=== PATIENT | male | born 1955 | race Caucasian/White ===

== ENCOUNTER 2024-02-11 12:36 | Observation (INO) | payer MEDICARE ==
[2024-02-11] VITALS (22 sets, daily range): BP systolic 66–190; BP diastolic 34–128
[~2024-02-11] VITALS: Ht 190.5 cm; Wt 95.0 kg
[~2024-02-11 12:36] MED LIST: ALPRAZOLAM ER0.5 MG PO; LIPITOR80 M1 PO; METFORMIN HCL1000 MG PO
[2024-02-11] MEDS ORDERED: ONDANSETRON HCl 4 MG/2 ML SDV IV ONE (13:15)
[2024-02-11] MEDS ORDERED: SODIUM CHLORIDE 0.9% 1,000 ML IV ONE ×3 (13:15→15:25)
[2024-02-11 13:32] LABS: BASO% 0.4 % (0-3); EOS% 0.6 % (0-8); HEMOGLOBIN 14.3 g/dl (14.0-18.0); IMMATURE GRANULOCYTES 0.2 % (0.0-5.0); LYMPH% 19.5 % (15-41); MEAN CELL VOLUME 84.6 fL CALC (80.0-100.0); MEAN CORPUSCULAR HGB 28.1 pG CALC (26.0-32.0); MEAN CORPUSCULAR HGB CONC 33.3 g/dL CAL (32.0-36.0); MONO% 15.5 % (2-13); NEUT# 3.47 thou/uL (1.82-7.42); NEUT% 63.8 % (42-76); RED BLOOD COUNT 5.08 mill/uL (4.70-6.10); RED CELL DISTRI WIDTH 13.5 % (11.5-15.5)
[2024-02-11 13:48] LABS: ALBUMIN 3.9 g/dL (3.2-5.0); ALKALINE PHOSPHATASE 109 u/l (38-126); BUN 21 mg/dL (8-23); BUN/CREATININE RATIO 18 (12-20 (CALC)); CHLORIDE 106 mmol/l (95-108); CREATININE 1.2 mg/dL (0.7-1.3); ESTIMATED GFR 65 ML/MIN (>=90 (CALC)); SGOT/AST 27 u/l (19-48); SODIUM 137 mmol/l (137-146); TOTAL PROTEIN 7.1 g/dL (6.3-8.2)
[2024-02-11 13:49] LABS: ANION GAP 15 (6-22 (CALC)); CARBON DIOXIDE 20 mmol/l (22-30); POTASSIUM 3.5 mmol/l (3.5-5.1)
[2024-02-11 13:53] LABS: INTERNATIONAL NORMALIZED RATIO 1.1 RATIO (0.7-1.3)
[2024-02-11 13:54] LABS: PROTHROMBIN TIME 10.3 SECONDS (9.0-12.5)
[2024-02-11] MEDS ORDERED: PROMETHAZINE HCL 25 MG/ML AMP IV ONE (15:25)
[2024-02-11] MEDS ORDERED: PIPERACILLIN Sodium-Tazobactam 3.375 GM in SODIUM CHLORIDE 0.9% 100 ML IV ONE (15:25)
[2024-02-11 15:49] LABS: URINE BILIRUBIN - DIPSTICK Negative (NEGATIVE); URINE BLOOD DIPSTICK Negative (NEGATIVE); URINE GLUCOSE - DIPSTICK Negative (NEGATIVE); URINE KETONE Negative (NEGATIVE); URINE LEUK ESTERASE Negative (NEGATIVE); URINE NITRITE - DIPSTICK Negative (Negative); URINE PROTEIN - DIPSTICK Negative (NEG-TRACE); URINE UROBILINOGEN - DIPSTICK 0.2 E.U./dL (0.2)
[2024-02-11 15:50] LABS: URINE COLOR Yellow
[2024-02-11] MEDS ORDERED: TRAZODONE50 MG PO (15:56)
[2024-02-11] MEDS ORDERED: FLEXERIL5 M1 PO (15:57)
[2024-02-11] MEDS ORDERED: ATORVASTATIN CA40 MG PO (15:59)
[2024-02-11] MEDS ORDERED: PROTONIX40 M2 PO (16:00)
[2024-02-11] MEDS ORDERED: VENLAFAXINE H37.5 M2 PO (16:00)
[2024-02-11] MEDS ORDERED: TOPROL XL25 M1 PO (16:01)
[2024-02-11] MEDS ORDERED: ASPIRINCHW 81MG PO (16:01)
[2024-02-11] MEDS ORDERED: LORTAB 1010 MG PO (16:02)
[2024-02-11] MEDS ORDERED: MAGNESIUM HYDROXIDE 30 ML UDC PO PRN (16:20)
[2024-02-11] MEDS ORDERED: SODIUM CHLORIDE 0.9% 1,000 ML IV PRN (16:20)
[2024-02-11] MEDS ORDERED: ACETAMINOPHEN 325 MG/TAB PO PRN (16:20)
[2024-02-11] MEDS ORDERED: HYDROcodone/Acetaminophen 1 COMBO TAB PO PRN (16:20)
[2024-02-11] MEDS ORDERED: XANAX0.5 MG PO (16:22)
[2024-02-11] MEDS ORDERED: METOPROLOL SUCCINATE 25 MG/TAB-TOPROL XL PO SCH (21:00)
[2024-02-11] MEDS ORDERED: ASPIRIN 81 MG/TAB PO SCH (21:00)
[2024-02-11] MEDS ORDERED: ALPRAZolam 0.5 MG/TAB PO PRN (21:00)
[2024-02-11] MEDS ORDERED: traZODone HCL 50 MG/TAB PO SCH (21:00)
[2024-02-11] MEDS ORDERED: VENLAFAXINE HYDROCHLORIDE 37.5 MG/TAB PO SCH (21:00)
[2024-02-11] MEDS ORDERED: ENOXAPARIN SODIUM 40 MG/0.4 ML SYR SC SCH (21:00)
[2024-02-11] MEDS ORDERED: ONDANSETRON HCl 4 MG/2 ML SDV IV PRN (23:45)
[2024-02-12] VITALS (7 sets, daily range): BP systolic 118–159; BP diastolic 44–74
[2024-02-12] MEDS ORDERED: PIPERACILLIN Sodium-Tazobactam 3.375 GM in SODIUM CHLORIDE 0.9% 100 ML IV SCH
[2024-02-12 05:14] LABS: HEMATOCRIT 38.2 % (39.0-50.0); MEAN CELL VOLUME 88.6 fL CALC (80.0-100.0); MEAN CORPUSCULAR HGB 28.3 pG CALC (26.0-32.0); MEAN CORPUSCULAR HGB CONC 31.9 g/dL CAL (32.0-36.0); RED BLOOD COUNT 4.31 mill/uL (4.70-6.10); RED CELL DISTRI WIDTH 13.5 % (11.5-15.5)
[2024-02-12 05:55] LABS: HEMOGLOBIN 12.2 g/dl (14.0-18.0)
[2024-02-12 06:00] LABS: BILIRUBIN, TOTAL 1.3 mg/dL (0.2-1.3); MAGNESIUM 1.9 mg/dL (1.6-2.3); POTASSIUM 3.1 mmol/l (3.5-5.1)
[2024-02-12 06:18] LABS: ALBUMIN 2.7 g/dL (3.2-5.0); TOTAL PROTEIN 5.3 g/dL (6.3-8.2)
[2024-02-12] MEDS ORDERED: PROMETHAZINE HCL 25 MG/ML AMP IV PRN (10:00)
[2024-02-12] MEDS ORDERED: POTASSIUM CHLORIDE 20MEQ 100 ML IV SCH (12:00)
[2024-02-12] MEDS ORDERED: hydrALAZINE HCL 20 MG/ML VIAL(1 ML) IV PRN (12:00)
[2024-02-13 03:59] VITALS: BP 152/65
[2024-02-13 05:12] LABS: HEMATOCRIT 32.4 % (39.0-50.0); HEMOGLOBIN 10.9 g/dl (14.0-18.0); MEAN CORPUSCULAR HGB 28.6 pG CALC (26.0-32.0); MEAN CORPUSCULAR HGB CONC 33.6 g/dL CAL (32.0-36.0); RED BLOOD COUNT 3.81 mill/uL (4.70-6.10); RED CELL DISTRI WIDTH 13.4 % (11.5-15.5)
[2024-02-13 05:25] LABS: ALBUMIN 2.5 g/dL (3.2-5.0); CREATININE 0.9 mg/dL (0.7-1.3); POTASSIUM 3.1 mmol/l (3.5-5.1)
[2024-02-13 07:21] VITALS: BP 156/69
[2024-02-13] MEDS ORDERED: PANTOPRAZOLE SODIUM Sesquihydr 40 MG/TAB PO SCH (09:00)
[2024-02-13] MEDS ORDERED: CIPROFLOXACN500 MG PO (09:55)
[2024-02-13] MEDS ORDERED: METRONIDAZOLE500 MG PO (09:55)
[2024-02-13] MEDS ORDERED: POTASSIUM CHLORIDE 20MEQ 100 ML IV SCH (12:00)
[2024-02-17] MEDS ORDERED: METFORMIN500 M2 PO (15:16)
== END 2024-02-13 12:37 | disposition home or self-care (01) ==
LOC: ED 12:36 → ED-I 13:17 → ED 15:43 → MS2 15:44
PROVIDERS: Nurse Practitioner; Nurse Practitioner Family; ADMIT Internal Medicine; ATTEND Internal Medicine
DX: K50.10 Crohn's disease of large intestine without complications (principal); E86.0 Dehydration; K29.70 Gastritis, unspecified, without bleeding; I10 Essential (primary) hypertension; E11.9 Type 2 diabetes mellitus without complications; I25.10 Atherosclerotic heart disease of native coronary artery without angina pectoris; F41.9 Anxiety disorder, unspecified; Z87.891 Personal history of nicotine dependence; Z87.11 Personal history of peptic ulcer disease; Z87.19 Personal history of other diseases of the digestive system
CPT/HCPCS: G0378; J1650; J2470; Q9967

== ENCOUNTER 2024-04-03 07:28 | Day surgery (SDC) | payer MEDICARE ==
[~2024-04-03] VITALS: Ht 190.5 cm; Wt 95.3 kg
[~2024-04-03 07:28] MED LIST changes: +ASPIRINCHW 81MG PO; +ATORVASTATIN CA40 MG PO; +CIPROFLOXACN500 MG PO; +FLEXERIL5 M1 PO; +LORTAB 1010 MG PO; +METFORMIN500 M2 PO; +METRONIDAZOLE500 MG PO; +PROTONIX40 M2 PO; +TOPROL XL25 M1 PO; +TRAZODONE50 MG PO; +VENLAFAXINE H37.5 M2 PO; +XANAX0.5 MG PO
[2024-04-03] MEDS ORDERED: SODIUM CHLORIDE 0.9% 1,000 ML IV ONE (07:32)
[2024-04-03] MEDS ORDERED: FAMOTIDINE 10MG/ML 2ML SDV IV ONE (07:54)
[2024-04-03 10:12] VITALS: BP 168/83
[2024-04-03] MEDS ORDERED: METOPROLOL TARTRATE 5 MG/5 ML VIAL IV ONE (21:02)
[2024-04-03] MEDS ORDERED: hydrALAZINE HCL 20 MG/ML VIAL(1 ML) IV ONE (21:02)
[2024-04-03] MEDS ORDERED: PROPOFOL 200 MG/20 ML VIAL IV ONE (21:02)
[2024-04-03] MEDS ORDERED: GLYCOPYRROLATE 0.2 MG/ML IV ONE (21:02)
[2024-04-03] MEDS ORDERED: LIDOCAINE HCL 2% 2ML SDV IV ONE (21:02)
== END 2024-04-03 10:35 | disposition home or self-care (01) ==
LOC: ORM 07:28
PROVIDERS: ATTEND Surgery
PROC: 0DBN8ZX Excision of Sigmoid Colon, Via Natural or Artificial Opening Endoscopic, Diagnostic (ICD-10-PCS; principal; 2024-04-03)
DX: Z12.11 Encounter for screening for malignant neoplasm of colon (principal); K63.5 Polyp of colon; K57.30 Diverticulosis of large intestine without perforation or abscess without bleeding; K64.8 Other hemorrhoids; I10 Essential (primary) hypertension; E11.9 Type 2 diabetes mellitus without complications; I25.10 Atherosclerotic heart disease of native coronary artery without angina pectoris; F41.9 Anxiety disorder, unspecified; Z87.11 Personal history of peptic ulcer disease; Z95.1 Presence of aortocoronary bypass graft

== ENCOUNTER 2024-05-15 17:31 | Emergency (ER) | payer MEDICARE ==
[~2024-05-15] VITALS: Ht 190.5 cm; Wt 93.0 kg
[2024-05-15 17:37] VITALS: BP 174/98
== END 2024-05-15 19:06 | disposition left against medical advice (07) ==
LOC: ED 17:31 → LWOBS 19:04
DX: Z53.21 Procedure and treatment not carried out due to patient leaving prior to being seen by health care provider (principal)